=== PATIENT | female | born 1960 | race Caucasian/White ===

== ENCOUNTER 2016-08-22 15:48 | Inpatient (IN) | payer MEDICARE, OTHER ==
[~2016-08-22] VITALS: Ht 154.9 cm; Wt 83.7 kg
--- NOTE | ~2016-08-22 | EKG ---
[place], [place] ELECTROCARDIOGRAM REPORT NAME: MILTON VAZQUEZ UNIT #: [id number] ROOM: [facility] DOCTOR: AVELINO CALDERON MD BIRTHDATE: [birth year] DOS: 08/22/2016 TIME: 1743 hours. FINDINGS: 1. Sinus tachycardia at 108 beats per minute. 2. Low voltage in precordial leads. 3. No previous tracing is available for comparison. AVELINO CALDERON MD CM:EKGRPT:ELECTROCARDIOGRAM REPORT [id number] AVELINO CALDERON MD
[~2016-08-22 15:48] MED LIST: ALBUTEROL0.09 MG/A2 INH; AMOXICILLIN500 MG PO; AMOXICILLIN875 MG PO; ANTIVERT/2525 M1 PO; ASPIRIN81 M1 PO; BACID PROBIOTIC1 TAB PO; BENAZEPRIL10 MG PO; BIAXIN500 MG PO; CEPHALEXIN500 M1 PO; CLARITIN10 MG PO; DAYPRO600 M1 PO; FLAGYL500 MG PO; FLONASE ALLERG9.9 ML NAS; FLUNISOLID0.025 MG/A NAS; GLIPIZIDE10 M2 PO; HAIR, SKIN & N1 EACH PO; KEFLEX500 MG PO; LANTUS100 U/ML SC; MEDROL DOSEPAK4 MG PO; METFORMIN1000 MG PO; METFORMIN500 MG PO; MOTRIN800 MG PO; MUCINEX100 MG PO; MUCINEX1200 MG PO; NAPROSYN500 MG PO; NATURE'S BLEND400 I1 PO; NEURONTIN100 MG PO; NORVASC10 MG PO; PREDNICOT20 MG PO; PREDNISONE10 MG PO; PREDNISONE20 MG PO; PREDNISONE50 MG PO; PROBIOTIC1 EAC1 PO; ROBITUSSIN AC 110 ML PO; TESSALON PERLE100 MG PO; TYLENOL W/CODEI1 TA2 PO; ULTRAM50 MG PO; VENTOLIN H0.09 MG/AC INH; VICODIN 5/500 505 MG PO; VITAMIN C WITH500 M1 PO; WELLBUTRIN SR150 MG PO; ZANTAC150 MG PO; ZESTRIL10 MG PO; ZITHROMAX Z PA250 MG PO; ZITHROMAX250 MG PO; ZITHROMAX500 MG PO; ZOCOR40 MG PO; ZOFRAN4 MG PO; ZYRTEC10 M1 PO; Zofran4 MG PO
[2016-08-22 16:25] VITALS: BP 138/90
[2016-08-22 17:26] LABS: BASO # 0.1 10*3/uL (0.0-0.1); BASO % 0.6 % (0.0-1.0); EOS # 0.3 10*3/uL (0.0-0.4); EOS % 1.7 % (1.0-4.0); HEMATOCRIT 42.7 % (37.0-47.0); HEMOGLOBIN 14.2 g/dl (12.0-16.0); IG # 0.1 10*3/uL (0.0-0.1); LYMPH # 4.2 10*3/uL (1.3-4.4); LYMPH % 27.9 % (27.0-41.0); MEAN CORPUSCULAR HGB 29.6 pg (27.0-31.0); MEAN CORPUSCULAR HGB CONC 33.3 g/dl (33.0-37.0); MEAN PLATELET VOLUME 8.9 fl (9.6-12.3); MONO # 1.1 10*3/uL (0.1-1.0); MONO % 6.9 % (3.0-9.0); NEUT # 9.5 10*3/uL (2.3-7.9); NEUT % 62.2 % (47.0-73.0); PLATELET COUNT AUTOMATED 352 10*3/uL (130-400); RED CELL DISTRI WIDTH 12.4 % (0-14.5); WHITE BLOOD COUNT 15.2 10*3/uL (4.8-10.8)
[2016-08-22 17:35] LABS: INTERNATIONAL NORM RATIO 0.9 (2.0-3.5)
[2016-08-22 17:45] LABS: ALBUMIN 3.8 gm/dl (3.1-4.5); ALKALINE PHOSPHATASE 92 U/L (45-117); BILIRUBIN, TOTAL 0.7 mg/dl (0.2-1.0); BUN 12 mg/dl (7-24); CARBON DIOXIDE 27 mmol/L (21-32); CHLORIDE 102 mmol/L (98-107); CKMB 2.8 ng/ml (0.5-3.6); CPK 357 U/L (26-192); EST GLOM FILT AFRICAN AMERICAN > 60 ml/min; GLUCOSE 209 mg/dL (65-99); MAGNESIUM 2.3 mg/dL (1.5-2.1); POTASSIUM 4.1 mmol/L (3.5-5.1); SGOT/AST 20 IU/L (3-35); SGPT/ALT 38 U/L (12-78); SODIUM 138 mmol/L (136-145); TOTAL PROTEIN 7.5 gm/dL (6.4-8.2)
[2016-08-22 17:48] LABS: TROPONIN I < 0.015 ng/ml (<0.045)
[2016-08-22 18:48] VITALS: BP 134/81
[2016-08-22 19:23] LABS: LA>2 REFLEX 2 HR DRAW NOW
[2016-08-22 20:50] VITALS: BP 140/78
[2016-08-22] MEDS ORDERED: ZOCOR20 MG PO (21:23)
[2016-08-22] MEDS ORDERED: NEURONTIN100 MG PO ×2 (21:26)
[2016-08-22] MEDS ORDERED: VITAMIN D31000 IU PO (21:31)
[2016-08-22] MEDS ORDERED: OXYCODONE HCL5 M1 PO (21:35)
[2016-08-23] VITALS: BP 142/90
[2016-08-23 06:46] LABS: BASO % 0.2 % (0.0-1.0); HEMATOCRIT 40.4 % (37.0-47.0); HEMOGLOBIN 13.6 g/dl (12.0-16.0); IG # 0.1 10*3/uL (0.0-0.1); LYMPH # 1.3 10*3/uL (1.3-4.4); LYMPH % 10.9 % (27.0-41.0); MEAN CELL VOLUME 89.2 fl (81.0-99.0); MEAN CORPUSCULAR HGB CONC 33.7 g/dl (33.0-37.0); MEAN PLATELET VOLUME 9.1 fl (9.6-12.3); MONO # 0.2 10*3/uL (0.1-1.0); MONO % 1.7 % (3.0-9.0); NEUT # 10.3 10*3/uL (2.3-7.9); NEUT % 86.3 % (47.0-73.0); PLATELET COUNT AUTOMATED 332 10*3/uL (130-400); RED BLOOD COUNT 4.53 10*6/uL (4.10-5.10); RED CELL DISTRI WIDTH 12.4 % (0-14.5); WHITE BLOOD COUNT 11.9 10*3/uL (4.8-10.8)
[2016-08-23 07:15] LABS: BUN 11 mg/dl (7-24); CARBON DIOXIDE 21 mmol/L (21-32); CHLORIDE 106 mmol/L (98-107); CHOLESTEROL 176 mg/dL (<200); CPK 264 U/L (26-192); EST GLOM FILT AFRICAN AMERICAN > 60 ml/min; FREE T4 0.93 ng/dl (0.76-1.46); GLUCOSE 293 mg/dL (65-99); HDL CHOLESTEROL 77 mg/dl (40-60); LDL CHOLESTEROL 73 mg/dL (9-159); MAGNESIUM 1.7 mg/dL (1.5-2.1); PHOSPHOROUS 3.2 mg/dL (2.5-4.9); POTASSIUM 3.9 mmol/L (3.5-5.1); SODIUM 138 mmol/L (136-145); TRIGLYCERIDES 128 mg/dl (<150); VLDL CHOLESTEROL 26 mg/dL (6-40)
[2016-08-23 08:00] VITALS: BP 150/90
[2016-08-23 12:00] VITALS: BP 143/90
[2016-08-23 16:00] VITALS: BP 155/94
[2016-08-23 20:00] VITALS: BP 154/81
[2016-08-24] VITALS: BP 152/90
[2016-08-24 06:20] LABS: HEMATOCRIT 37.5 % (37.0-47.0); HEMOGLOBIN 12.3 g/dl (12.0-16.0); MEAN CELL VOLUME 90.4 fl (81.0-99.0); MEAN CORPUSCULAR HGB 29.6 pg (27.0-31.0); MEAN CORPUSCULAR HGB CONC 32.8 g/dl (33.0-37.0); MEAN PLATELET VOLUME 9.5 fl (9.6-12.3); PLATELET COUNT AUTOMATED 322 10*3/uL (130-400); RED BLOOD COUNT 4.15 10*6/uL (4.10-5.10); RED CELL DISTRI WIDTH 12.6 % (0-14.5); WHITE BLOOD COUNT 22.5 10*3/uL (4.8-10.8)
[2016-08-24 06:49] LABS: LYMPHOCYTE # 2.7 10*3/uL (1.3-4.4); MONOCYTE # 0.7 10*3/uL (0.1-1.0); NEUTROPHIL # 19.1 10*3/uL (2.3-7.9); NEUTROPHILS 85 % (47-73); PLATELET SUFFICIENCY NORMAL (NORMAL); TOTAL CELLS COUNTED 100 #CELLS
[2016-08-24 06:59] LABS: BUN 14 mg/dl (7-24); CARBON DIOXIDE 25 mmol/L (21-32); CHLORIDE 109 mmol/L (98-107); GLUCOSE 228 mg/dL (65-99); POTASSIUM 3.8 mmol/L (3.5-5.1); SODIUM 142 mmol/L (136-145)
[2016-08-24 07:02] LABS: EST GLOM FILT AFRICAN AMERICAN > 60 ml/min
[2016-08-24 08:00] VITALS: BP 145/79
[2016-08-24 12:00] VITALS: BP 150/90
[2016-08-24 16:00] VITALS: BP 155/98
[2016-08-24 20:00] VITALS: BP 154/96
[2016-08-25] VITALS: BP 148/94
[2016-08-25 06:07] LABS: BASO % 0.2 % (0.0-1.0); HEMATOCRIT 40.7 % (37.0-47.0); HEMOGLOBIN 13.4 g/dl (12.0-16.0); IG # 0.3 10*3/uL (0.0-0.1); LYMPH # 2.8 10*3/uL (1.3-4.4); LYMPH % 15.5 % (27.0-41.0); MEAN CELL VOLUME 90.6 fl (81.0-99.0); MEAN CORPUSCULAR HGB 29.8 pg (27.0-31.0); MEAN CORPUSCULAR HGB CONC 32.9 g/dl (33.0-37.0); MONO # 1.1 10*3/uL (0.1-1.0); MONO % 5.9 % (3.0-9.0); NEUT # 14.1 10*3/uL (2.3-7.9); PLATELET COUNT AUTOMATED 334 10*3/uL (130-400); RED BLOOD COUNT 4.49 10*6/uL (4.10-5.10); RED CELL DISTRI WIDTH 12.5 % (0-14.5); WHITE BLOOD COUNT 18.3 10*3/uL (4.8-10.8)
[2016-08-25 06:40] LABS: ALBUMIN 3.6 gm/dl (3.1-4.5); BUN 17 mg/dl (7-24); CARBON DIOXIDE 27 mmol/L (21-32); CHLORIDE 104 mmol/L (98-107); GLUCOSE 249 mg/dL (65-99); SGOT/AST 14 IU/L (3-35); SODIUM 138 mmol/L (136-145)
[2016-08-25 06:42] LABS: ALKALINE PHOSPHATASE 82 U/L (45-117); BILIRUBIN, TOTAL 0.5 mg/dl (0.2-1.0); EST GLOM FILT AFRICAN AMERICAN > 60 ml/min; SGPT/ALT 39 U/L (12-78); TOTAL PROTEIN 7.4 gm/dL (6.4-8.2)
[2016-08-25 08:00] VITALS: BP 148/92
[2016-08-25] MEDS ORDERED: LEVOFLOXACIN500 MG PO (10:57)
[2016-08-25] MEDS ORDERED: TESSALON PERLE100 MG PO (10:57)
[2016-08-25] MEDS ORDERED: VENTOLIN H0.09 MG/AC INH (10:57)
[2016-08-25] MEDS ORDERED: PREDNISONE10 MG PO (10:57)
[2016-08-25 12:00] VITALS: BP 138/65
== END 2016-08-25 14:48 | disposition home or self-care (01) | DRG 871 ==
LOC: ED 15:48 → 5E 18:26 → EDHOLD 18:26 → 5E 19:57
PROVIDERS: Emergency Medicine; Family Medicine; Internal Medicine
DX: A41.9 Sepsis, unspecified organism (principal); J18.9 Pneumonia, unspecified organism; E87.2 Acidosis; Z68.1 Body mass index [BMI] 19.9 or less, adult; R65.20 Severe sepsis without septic shock; J40 Bronchitis, not specified as acute or chronic; E11.65 Type 2 diabetes mellitus with hyperglycemia; I10 Essential (primary) hypertension; G47.33 Obstructive sleep apnea (adult) (pediatric); E66.09 Other obesity due to excess calories; E83.41 Hypermagnesemia; Z90.49 Acquired absence of other specified parts of digestive tract; Z81.1 Family history of alcohol abuse and dependence; Z80.1 Family history of malignant neoplasm of trachea, bronchus and lung; S46.112S Strain of muscle, fascia and tendon of long head of biceps, left arm, sequela; Z87.891 Personal history of nicotine dependence; Z82.49 Family history of ischemic heart disease and other diseases of the circulatory system; Z79.4 Long term (current) use of insulin; Z79.84 Long term (current) use of oral hypoglycemic drugs; Z79.1 Long term (current) use of non-steroidal anti-inflammatories (NSAID); Z79.899 Other long term (current) drug therapy

== ENCOUNTER → 2017-04-15 | Outpatient (CLI) | payer MEDICARE, OTHER ==
[~2017-04-15] MED LIST changes: +LEVOFLOXACIN500 MG PO; +OXYCODONE HCL5 M1 PO; +VITAMIN D31000 IU PO; +ZOCOR20 MG PO
== END | disposition home or self-care (01) ==
LOC: MAMMO 04-09 08:40
DX: Z12.31 Encounter for screening mammogram for malignant neoplasm of breast (principal)

== ENCOUNTER → 2017-08-26 | Day surgery (SDC) | payer MEDICARE, OTHER ==
[~2017-08-26] VITALS: Ht 154.9 cm; Wt 86.2 kg
[~2017-08-26] MED LIST changes: +BUSPIRONE HCL10 MG PO; +HUMALOG100 UNIT/1 SC; +LANTUS SOL100 UNIT/1 SC; +MECLIZINE HCL12.5 MG PO
--- NOTE | ~2017-08-26 | O ---
[place], [place] OPERATIVE NOTE NAME: MILTON VAZQUEZ UNIT #: [id number] ROOM: DOCTOR: DONNELL MONTOYA MD BIRTHDATE: [birth year] DOS: 08/26/2017 GASTROENDOSCOPIC REPORT HISTORY: A 57-year-old patient who has presented for colonic screening. The patient with left lower quadrant pain radiating to back. ALLERGIES: BEESTING. PAST SURGICAL HISTORY: Cholecystectomy, , and right rotator cuff. PAST MEDICAL HISTORY: Diabetes mellitus, hypercholesterolemia, neuropathy, and hypertension. SOCIAL HISTORY: Stopped smoking 10 years ago. Alcohol in social base. PROCEDURE: Today's procedure part of investigation is colonoscopy. PREMEDICATION: Versed and propofol. SCOPE: Olympus folding colonoscope 10L video. REPORT: After putting the patient in left lateral position and application of lubricant to rectal pouch and ____ was introduced; thereafter, under direct visualization, advanced through the length of colon with some difficulty. Difficulty being retained stool all along the length of the colon from rectum all the way to cecum. However, we managed to get to the cecum, but detailed visualization is compromised 50% due to retained stool and scattered diverticulosis noticed. Air was suctioned out. The patient was extubated, tolerated procedure well. IMPRESSION: Retained stool, diverticulosis. This colonoscopy cannot be reliably declared clear, otherwise, due to retained stool. I recommend her to have a followup colonoscopy since considered as a base colonoscopy after 15 years. I thank you very much indeed. Case will be discussed with the patient. [place], [place] OPERATIVE NOTE NAME: MILTON VAZQUEZ UNIT #: [id number] ROOM: DOCTOR: DONNELL MONTOYA MD BIRTHDATE: [birth year] DONNELL MONTOYA MD CM:OPRECORD:OPERATIVE NOTE 1 DONNELL MONTOYA MD 08/26/17 0839 interface
[2017-08-26 06:25] VITALS: BP 175/91
[2017-08-26 07:01] VITALS: BP 165/95
[2017-08-26 08:07] VITALS: BP 128/83
[2017-08-26 08:22] VITALS: BP 136/85
[2017-08-26 08:34] VITALS: BP 130/80
== END | disposition home or self-care (01) ==
LOC: SDC 08-21 08:00
DX: K57.30 Diverticulosis of large intestine without perforation or abscess without bleeding (principal); E11.40 Type 2 diabetes mellitus with diabetic neuropathy, unspecified; I10 Essential (primary) hypertension; E78.00 Pure hypercholesterolemia, unspecified; Z90.49 Acquired absence of other specified parts of digestive tract; Z98.890 Other specified postprocedural states; Z87.891 Personal history of nicotine dependence; K21.9 Gastro-esophageal reflux disease without esophagitis; F41.9 Anxiety disorder, unspecified; Z79.84 Long term (current) use of oral hypoglycemic drugs; J45.909 Unspecified asthma, uncomplicated; Z91.030 Bee allergy status; Z82.49 Family history of ischemic heart disease and other diseases of the circulatory system; Z83.3 Family history of diabetes mellitus

== ENCOUNTER → 2017-08-28 | Day surgery (SDC) | payer MEDICARE, OTHER ==
[~2017-08-28] VITALS: Ht 152.4 cm; Wt 86.2 kg
--- NOTE | ~2017-08-28 | O ---
[place], [place] OPERATIVE NOTE NAME: MILTON VAZQUEZ UNIT #: [id number] ROOM: DOCTOR: DONNELL MONTOYA MD BIRTHDATE: [birth year] DOS: 08/28/2017 INDICATIONS: A 57-year-old patient who was presented with chief complaint of colonic screening. She has previously come for colonoscopy. She was not prepped adequately. She was rescheduled, therefore. PROCEDURE: Today's procedure part of investigation is colonoscopy plus snare polypectomy. PREMEDICATION: Versed and propofol. SCOPE: Olympus folding colonoscope 10L video. REPORT: After putting the patient in left lateral position, application of lubricant to the scope, the scope was introduced. Thereafter, under direct visualization, I advanced through the length of colon without difficulty. Base of the cecum explored, appendiceal orifice identified, ileocecal valve was defined. A sessile polypoid lesion at the base of cecum with the snare was polypectomized. Samples recovered. Diverticulosis scatteredly noticed. Air was suctioned out. The patient was extubated, tolerated procedure well. IMPRESSION: Cecal polyp status post snare polypectomy, diverticulosis. PLAN AND DISCUSSION: High fiber fruit diet. ACTIVITY: Ad sammy. FOLLOWUP: Routinely with you in office and p.r.n. visit with us in [facility]. Next time this patient needs colonoscopy is going to 5 years. I thank you very much indeed for your kind referral. DONNELL MONTOYA MD CM:OPRECORD:OPERATIVE NOTE [id number] DONNELL MONTOYA MD 08/28/17 1126 interface
[2017-08-28 10:06] VITALS: BP 140/87
[2017-08-28 10:42] VITALS: BP 104/59
[2017-08-28 10:57] VITALS: BP 114/73
[2017-08-28 11:05] VITALS: BP 113/74
== END | disposition home or self-care (01) ==
LOC: SDC 08-27 12:30
DX: Z12.11 Encounter for screening for malignant neoplasm of colon (principal); D12.0 Benign neoplasm of cecum; K57.30 Diverticulosis of large intestine without perforation or abscess without bleeding; E11.9 Type 2 diabetes mellitus without complications; I10 Essential (primary) hypertension; K21.9 Gastro-esophageal reflux disease without esophagitis; J45.909 Unspecified asthma, uncomplicated; F41.9 Anxiety disorder, unspecified; G47.33 Obstructive sleep apnea (adult) (pediatric); Z98.890 Other specified postprocedural states; Z83.3 Family history of diabetes mellitus; Z82.49 Family history of ischemic heart disease and other diseases of the circulatory system; Z79.899 Other long term (current) drug therapy

== ENCOUNTER → 2017-10-16 | Outpatient (CLI) | payer MEDICARE, OTHER | END | disposition home or self-care (01) | LOC: CT 08:41 | DX: R10.9 Unspecified abdominal pain (principal); Z90.49 Acquired absence of other specified parts of digestive tract ==

== ENCOUNTER 2017-12-31 19:25 | Emergency (ER) | payer MEDICARE, OTHER ==
[~2017-12-31] VITALS: Ht 154.9 cm; Wt 85.3 kg
[2017-12-31] MEDS ORDERED: LEVAQUIN750 M1 PO (19:41)
[2017-12-31] MEDS ORDERED: CLINDAMYCIN150 MG PO (19:41)
== END 2017-12-31 20:00 | disposition home or self-care (01) ==
LOC: ED 19:25
DX: L03.032 Cellulitis of left toe (principal); E11.9 Type 2 diabetes mellitus without complications; I10 Essential (primary) hypertension; E66.9 Obesity, unspecified; Z91.030 Bee allergy status; Z79.4 Long term (current) use of insulin; Z79.899 Other long term (current) drug therapy; Z87.891 Personal history of nicotine dependence

== ENCOUNTER → 2018-01-20 | Outpatient (CLI) | payer MEDICARE, OTHER ==
[~2018-01-20] MED LIST changes: +CLINDAMYCIN150 MG PO; +LEVAQUIN750 M1 PO
== END | disposition home or self-care (01) ==
LOC: LAB 09:29
PROVIDERS: Nurse Practitioner Family
DX: E11.9 Type 2 diabetes mellitus without complications (principal); R53.83 Other fatigue; M79.10 Myalgia, unspecified site

== ENCOUNTER → 2018-03-26 | Outpatient (CLI) | payer MEDICARE, OTHER ==
[2018-03-26 12:03] LABS: BASO # 0.1 10*3/uL (0.0-0.1); BASO % 0.7 % (0.0-1.0); EOS # 0.4 10*3/uL (0.0-0.4); EOS % 3.6 % (1.0-4.0); HEMATOCRIT 42.7 % (37.0-47.0); HEMOGLOBIN 14.5 g/dl (12.0-16.0); LYMPH % 30.7 % (27.0-41.0); MEAN CELL VOLUME 87.1 fl (81.0-99.0); MEAN CORPUSCULAR HGB 29.6 pg (27.0-31.0); MEAN PLATELET VOLUME 9.4 fl (9.6-12.3); MONO # 0.7 10*3/uL (0.1-1.0); MONO % 7.2 % (3.0-9.0); NEUT # 5.6 10*3/uL (2.3-7.9); NEUT % 57.6 % (47.0-73.0); PLATELET COUNT AUTOMATED 222 10*3/uL (130-400); WHITE BLOOD COUNT 9.8 10*3/uL (4.8-10.8)
[2018-03-27 08:09] LABS: RHEUMATOID ARTHRITIS FACTOR <10.0 IU/mL (0.0-13.9)
== END | disposition home or self-care (01) ==
LOC: LAB 11:28
PROVIDERS: Nurse Practitioner Family
DX: R53.83 Other fatigue (principal); M25.50 Pain in unspecified joint

== ENCOUNTER 2018-09-04 13:07 | Emergency (ER) | payer MEDICARE, OTHER ==
[~2018-09-04] VITALS: Ht 154.9 cm; Wt 83.0 kg
[2018-09-04 13:44] LABS: BILIRUBIN NEGATIVE (NEGATIVE); BLOOD NEGATIVE (NEGATIVE); CLARITY SL CLOUDY (CLEAR); COLOR YELLOW (YELLOW); GLUCOSE NEGATIVE (NEGATIVE); KETONE NEGATIVE (NEGATIVE); LEUKO ESTERASE TRACE (NEGATIVE); NITRITE NEGATIVE (NEGATIVE); SPECIFIC GRAVITY <= 1.005 (1.005-1.030); UROBILINOGEN 0.2 E.U./dl (0.2-1.0)
[2018-09-04 13:44] LABS: BASO # 0.1 10*3/uL (0.0-0.1); BASO % 0.5 % (0.0-1.0); EOS # 0.3 10*3/uL (0.0-0.4); EOS % 2.3 % (1.0-4.0); HEMATOCRIT 39.7 % (37.0-47.0); HEMOGLOBIN 13.3 g/dl (12.0-16.0); LYMPH % 23.6 % (27.0-41.0); MEAN CORPUSCULAR HGB 29.8 pg (27.0-31.0); MEAN CORPUSCULAR HGB CONC 33.5 g/dl (33.0-37.0); MEAN PLATELET VOLUME 9.5 fl (9.6-12.3); MONO # 0.8 10*3/uL (0.1-1.0); MONO % 6.5 % (3.0-9.0); NEUT # 8.5 10*3/uL (2.3-7.9); NEUT % 66.8 % (47.0-73.0); PLATELET COUNT AUTOMATED 240 10*3/uL (130-400); RED BLOOD COUNT 4.46 10*6/uL (4.10-5.10); RED CELL DISTRI WIDTH 12.8 % (0-14.5); WHITE BLOOD COUNT 12.8 10*3/uL (4.8-10.8)
[2018-09-04 13:52] LABS: RBC 0-2 rbc/hpf (0-2)
[2018-09-04 13:53] LABS: BACTERIA TRACE
[2018-09-04 14:00] LABS: ALKALINE PHOSPHATASE 57 U/L (45-117); BUN 14 mg/dl (7-24); CHLORIDE 104 mmol/L (98-107); CREATININE 0.71 mg/dL (0.55-1.02); SGOT/AST 22 IU/L (3-35); SGPT/ALT 36 U/L (12-78); SODIUM 140 mmol/L (136-145); TOTAL PROTEIN 7.8 gm/dL (6.4-8.2)
[2018-09-04] MEDS ORDERED: IBU800 MG PO (14:29)
[2018-09-04] MEDS ORDERED: CYCLOBENZAPRINE10 MG PO (14:29)
== END 2018-09-04 14:54 | disposition home or self-care (01) ==
LOC: ED 13:07
PROVIDERS: Registered Nurse
DX: M54.42 Lumbago with sciatica, left side (principal); I10 Essential (primary) hypertension; E11.9 Type 2 diabetes mellitus without complications; Z87.891 Personal history of nicotine dependence; Z79.899 Other long term (current) drug therapy; Z79.4 Long term (current) use of insulin; Z91.030 Bee allergy status

== ENCOUNTER → 2018-09-21 | Outpatient (CLI) | payer MEDICARE, OTHER ==
[~2018-09-21] MED LIST changes: +CYCLOBENZAPRINE10 MG PO; +IBU800 MG PO
== END | disposition home or self-care (01) ==
LOC: CARD 14:17
DX: I07.1 Rheumatic tricuspid insufficiency (principal)

== ENCOUNTER 2019-05-01 13:43 | Emergency (ER) | payer MEDICARE, OTHER ==
[2019-05-01] MEDS ORDERED: AMOXICILLIN500 M3 PO (13:54)
[2019-05-03] MEDS ORDERED: TESSALON PERLE100 MG PO (13:49)
== END 2019-05-01 14:03 | disposition home or self-care (01) ==
LOC: ED 13:43
DX: J01.90 Acute sinusitis, unspecified (principal); B96.89 Other specified bacterial agents as the cause of diseases classified elsewhere; K21.9 Gastro-esophageal reflux disease without esophagitis; E11.9 Type 2 diabetes mellitus without complications; I10 Essential (primary) hypertension; E66.9 Obesity, unspecified; Z87.891 Personal history of nicotine dependence; Z91.030 Bee allergy status; Z79.899 Other long term (current) drug therapy; Z79.2 Long term (current) use of antibiotics; Z90.49 Acquired absence of other specified parts of digestive tract